=== PATIENT | male | born 1960 | race Caucasian/White ===

== ENCOUNTER 2016-11-03 00:54 | Emergency (ER) | payer OTHER ==
[~2016-11-03] VITALS: Ht 180.3 cm; Wt 90.9 kg
[2016-11-03 00:57] VITALS: BP 134/90; PULSE 84; RESP 16; O2SAT 96
--- NOTE | 2016-11-03 01:24 | ED.REPORT ---
HPI-Back Pain 40 and Over Date of Service November 03, 2016 ED Provider: Esvin Mackey DO Patient is a 56 year old male who presents to the ED complaining of right flank pain onset a week ago. Associated symptoms include radiating pain up to right back and nausea. He denies chest pain, abdominal pain, testicular pain or swelling, diarrhea or vomiting. The patient reports that the pain has gotten progressively worse since yesterday. Nursing Notes Stated Complaint: BACK PAIN Chief Complaint: Back Pain or Injury Nursing Notes Reviewed: Yes Allergies: Coded Allergies: No Known Allergies (Unverified , 11/03/16) General Time Seen by MD: 01:24 Chief Complaint Flank pain right Hx Obtained From: Patient Arrived By: Walk-in Sudden in Onset?: Yes Onset Occurred: 1 week ago Symptom Duration: Since onset Location: : Flank right Associated with: Reports: Nausea, Denies: Vomiting Recent Healthcare: No recent doctor visit, No recent hospitalization Past Medical History Smoking History Unknown if Ever Smoker Ambulatory Status Independent Review of Systems Respiratory: Denies: Non-productive cough, Shortness of breath Cardiovascular: Denies: Chest pain GI: Reports: Nausea, Denies: Abdominal pain, Diarrhea, Vomiting Male: Reports Flank pain, Denies Testicular pain, Denies Testicular swelling Musculoskeletal: Reports: Back pain Complete sys rev & neg: except as marked. Physical Exam Initial Vital Signs Vital Signs (First) Date Time Temp Pulse Resp B/P Pulse Ox O2 Delivery O2 Flow Rate FiO2 11/03/16 00:57 36.3 84 16 134/90 96 Room Air Initial VS: Reviewed General/Constitutional: Awake, Alert Respiratory / Chest: Atraumatic, Breath sounds NL, Breath sounds = bilat, No respiratory distress Cardiovascular: Heart rate NL, Regular rhythm, Heart sounds NL Abdomen: Atraumatic, Soft, Non-tender BACK: tenderness with CVA compression Neurologic: Oriented X3, Speech NL, No motor deficits, No sensory deficits Lower Extremity / Pelvis / MS: Atraumatic, Full range of motion Skin: Atraumatic, Color NL, No rash, Warm, Dry Head / Eyes: Atraumatic, Normocephalic, PERRL, EOMI Upper Extremity / MS: Atraumatic, Full range of motion Psychiatric: Affect NL, Mood NL Interpretation & Diagnostics Lab Results Interpretation Result Diagram: 11/03/16 0300 11/03/16 0300 Test 11/03/16 02:45 11/03/16 03:00 Urine Color Yellow (YELLOW) Urine Appearance Clear (CLEAR,HAZY) Urine pH 6.5 (5.0-8.0) Urine Specific [place] 1.020 (1.003-1.035) Urine Protein Negativemg/dL (NEG,TRACE) Urine Glucose (UA) Negativemg/dL (NEGATIVE) Urine Ketones Negativemg/dL (NEGATIVE) Urine Occult Blood Negative (NEGATIVE) Urine Nitrite Negative (NEGATIVE) Urine Bilirubin Negative (NEGATIVE) Urine Urobilinogen Normalmg/dL (NORMAL) Urine Leukocyte Esterase Negative (NEGATIVE) Urine RBC 0-2/hpf (0-2) Urine WBC 0-5/hpf (0-5) Urine Epithelial Cells None/hpf (NONE-MOD) Urine Crystals None seen (NONE SEEN) Urine Bacteria None/hpf (NONE-FEW) Urine Hyaline Casts None/lpf (NONE) Urine Granular Casts None seen (NONE SEEN) Urine Waxy Casts None seen (NONE SEEN) Urine Red Blood Cell Casts None seen (NONE SEEN) Urine White Blood Cell Casts None seen (NONE SEEN) Urine Mucus None seen (None Seen) Urine Trichomonas None seen (NONE SEEN) Urine Yeast None (NONE SEEN) Urinalysis Comment None Urine Culture Reflexed Not indicated White Blood Count 7.1th/mm3 (3.8-10.1) Red Blood Count 4.99mil/mm3 (4.40-5.80) Hemoglobin 14.8g/dL (13.8-17.2) Hematocrit 42.5% (41.0-50.0) Mean Corpuscular Volume 85.2fL (81-100) Mean Corpuscular Hemoglobin 29.7pg (27.0-35.0) Mean Corpuscular Hemoglobin Concent 34.8% (32.0-37.0) Red Cell Distribution Width 12.4% (12.3-15.4) Platelet Count 223bil/L (150-400) Neutrophils (%) (Auto) 70.9% (40-74) Lymphocytes (%) (Auto) 17.0% (14-46) Monocytes (%) (Auto) 9.0% (4-12) Eosinophils (%) (Auto) 2.5% (0-5) Basophils (%) (Auto) 0.3% (0-3) Sodium Level 137mEq/L (134-144) Potassium Level 4.5mEq/L (3.5-5.2) Chloride Level 102mEq/L (97-108) Carbon Dioxide Level 21mmol/L (18-29) Blood Urea Nitrogen 15mg/dL (6-24) Creatinine 1.04mg/dL (0.76-1.27) Estimat Glomerular Filtration Rate 78mL/min (>59) Glucose Level 120mg/dL (60-99) Calcium Level 8.3mg/dL (8.5-10.1) Total Bilirubin 0.4mg/dL (0.0-1.2) Aspartate Amino Transf (AST/SGOT) 22U/L (0-50) Alanine Aminotransferase (ALT/SGPT) 28U/L (0-44) Alkaline Phosphatase 104U/L (25-150) Total Protein 6.6g/dL (6.4-8.4) Albumin 3.9g/dL (3.4-5.0) Hold Plata Top Tube Received (Received) CT Abd / Pelvis Interpretation CONCLUSION: 1. Negative for obstructive uropathy. Normal caliber appendix. No acute findings. 2. 4mm noncalcified nodule in the lingula is of doubtful clinical significance in a low risk patient. If there are risk factors for maligancy and long- term stability cannot be confirmed, consider outpatient CT chest evaluation. at 0159 Study type: Abdominal CT no contrast Interpretation / Wet Read by: Interpret - Radiologist Re-Eval/Medical Decision Re-Evaluation/Progress : Time of Eval: 02:18 Re-Evaluation/Progress Note: Discussed CT results and plan for discharge. The patient understands and agrees to the plan for discharge. All questions were addressed. Counseled Regarding: Diagnosis, Lab results, Need for follow-up, When/why to return to ED Discharge & Departure Impression: Primary Impression: Low back pain Chronicity: unspecified Back pain laterality: right Sciatica presence: without sciatica Qualified Code: M54.5 - Low back pain Disposition: Home Discharge Condition All VS Reviewed: Yes Condition: Stable Patient Instructions: Acute Low Back Pain (ED) Additional Instructions: Your CT was reassuring and showed no evidence of kidney stones. It did show a 4mm lung nodule that may need follow up. You should follow up with your primary care physician. You may take 1-2 Percocet every 6 hours for pain. Do not drink alcohol or drive while taking the pain medication. Do not take Acetaminophen while taking the pain medication. Be sure to drink plenty of fluids. Return to the emergency department if you develop any new or worsening symptoms. Referrals: Jayne Montenegor PA-C (PCP) [employer] Attestation Portions of this note were transcribed by Mary Kelley. I, Dr. Mackey personally performed the history, physical exam and medical decision-making; I reviewed and confirmed the accuracy of the information in the transcribed note. Signed by: Mabel Jack, 11/03/16 and 0248 copies to: Jayne Montenegro PA-C, Todd P DO November 03, 2016 01:24 Iram Kelley November 03, 2016 01:47
[2016-11-03] MEDS ORDERED: oxyCODONE-Acetamin 5-325 mg Tablet PO ONE (01:35)
[2016-11-03] MEDS ORDERED: _oxyCODONE/APAP 5-325 mg Tablet PO PRN (02:15)
[2016-11-03 03:00] LABS: APPEARANCE,URINE CLEAR (CLEAR,HAZY); COLOR,URINE YELLOW (YELLOW)
[2016-11-03 03:01] LABS: OCCULT BLOOD,URINE NEGATIVE (NEGATIVE); PH,URINE 6.5 (5.0-8.0); UROBILINOGEN,URINE NORMAL (NORMAL)
[2016-11-03 03:08] LABS: BASOPHILS % (AUTO) 0.3 % (0-3); EOSINOPHILS % (AUTO) 2.5 % (0-5); Mean Corpuscular Hemoglobin 29.7 pg (27.0-35.0); Mean Corpuscular Volume 85.2 fL (81-100); NEUTROPHILS % (AUTO) 70.9 % (40-74); Platelet Count 223 bil/L (150-400)
--- NOTE | 2016-11-03 07:54 | DRSVH ---
PROCEDURE: CT KUB ([id number]) INDICATIONS: right flank pain, nausea TECHNIQUE: Noncontrast 5 mm thick sections acquired from the diaphragms to the symphysis. 5 mm thick coronal an d sagittal reformats were then performed. For radiation dose reduction, the following was used: aut omated exposure control, adjustment of mA and/or kV according to patient size. COMPARISON: [facility], CT, ABD/PELVIS W/CON (PNL), 09/05/2006, 17:07. FINDINGS: Image quality: Excellent. Lung bases: Lung bases are clear no acute opacities. 5-6 mm nodule is noted in the left lung base wh ich is stable compared to 09/05/2006. 4 mm nodule is noted in the right middle lobe (series 3, image o ne) which is new compared to prior CT scan.. Heart size is normal. Urinary system: Both kidneys are normal in size. No kidney stones. No hydronephrosis or perinephri c fat stranding. Both ureters appear non-dilated throughout their expected courses. Bladder wall th ickness is normal; no calcified bladder stones. Right renal cysts are noted. Other solid organs: Liver and spleen are normal in size. Gallbladder is within normal limits. Panc reas is normal in contours. No adrenal nodules. Peritoneum and bowel: Unenhanced bowel loops demonstrate normal wall thickness and caliber. Multiple diverticuli are scattered throughout the sigmoid and left colon without evidence of diverticulitis. The appendix is normal. No free fluid or air. Nodes and vessels: No retroperitoneal or mesenteric adenopathy by size criteria. Aorta and inferior vena cava are normal in caliber. Abdominal wall: No ventral hernias. Pelvis: No free pelvic fluid. No inguinal hernias or adenopathy. Bones: No suspicious bony lesions. No vertebral body compression fractures. Spine degenerative dise ase and facet arthropathy are noted. IMPRESSION: 1. No renal stone or hydronephrosis. 2. Normal appendix. 3. Colonic diverticulosis without diverticulitis. 4. 5-6 mm nodule in the left lung base which is stable compared to 09/05/2006 compatible with benign e tiology. 5. 4 mm nodule in the right lung base which has developed in the interval since prior CT scan. Recomm end followup CT scan based on criteria outlined below. Fleischner Society criteria for SOLID lung nodule followup. Nodule size (mm)Low-risk patientHigh-risk patient<6 (single or multiple)No routine followup.Optional CT at 12 months. 6-8 (single or multiple)CT at 6-12 months, then optional CT at 18-24 mo.CT at 6-12 m onths, then CT at 18-24 months. >8 (single)CT, PET-CT, or biopsy at 3 months. Same as for low-risk p ts. >8 (multiple)CT at 3-6 months, then optional CT at 18-24 mo.CT at 3-6 months, then CT at 18-24 m onths. Recommendations do not apply to lung cancer screening, patients with immunosuppression, or patients w ith known primary cancer. Dictated by: Vesta Golden MD, PhD on 11/03/2016 at 7:47 Approved by: Vesta Golden MD, PhD on 11/03/2016 at 7:53
== END 2016-11-03 03:40 | disposition home or self-care (01) ==
LOC: SED 00:54
DX: M54.5 Low back pain (principal)
CPT/HCPCS: 36415; 74176; 80053; 81000; 85025; 96372; 99285; J1885